=== PATIENT | female | born 1975 | race Caucasian/White ===

== ENCOUNTER → 2016-11-28 | Outpatient (CLI) | payer OTHER ==
--- NOTE | 2016-11-30 07:56 | MM ---
Reason for exam: screening (asymptomatic). Last mammogram was performed 1 year and 2 months ago. History: Family history of breast cancer in sister at age 49 and breast cancer in mother at age 49. Physical Findings: A clinical breast exam by your physician is recommended on an annual basis and results should be correlated with mammographic findings. MG 3D Screening Mammo W/Cad Bilateral CC and MLO view(s) were taken. Prior study comparison: October 04, 2015, left breast MG 3d work up w/cad LT. September 22, 2015, bilateral MG screening mammo w CAD. May 12, 2013, bilateral digital screening mammo w/CAD. The breast tissue is heterogeneously dense. This may lower the sensitivity of mammography. No significant changes when compared with prior studies. ASSESSMENT: Negative, BI-RAD 1 RECOMMENDATION: Routine screening mammogram of both breasts in 1 year.
== END | disposition home or self-care (01) ==
LOC: RADMAMWWP 12:39
PROVIDERS: ATTEND Family Medicine
DX: Z12.31 Encounter for screening mammogram for malignant neoplasm of breast (principal); Z80.3 Family history of malignant neoplasm of breast
CPT/HCPCS: 77063; G0202

== ENCOUNTER → 2018-02-25 | Outpatient (CLI) | payer OTHER ==
--- NOTE | 2018-02-26 11:20 | MM ---
Reason for exam: screening (asymptomatic). Last mammogram was performed 1 year and 3 months ago. History: Family history of breast cancer in sister at age 49 and breast cancer in mother at age 49. Physical Findings: A clinical breast exam by your physician is recommended on an annual basis and results should be correlated with mammographic findings. MG 3D Screening Mammo W/Cad Bilateral CC and MLO view(s) were taken. Prior study comparison: November 28, 2016, bilateral MG 3d screening mammo w/cad. October 04, 2015, left breast MG 3d work up w/cad LT. The breast tissue is heterogeneously dense. This may lower the sensitivity of mammography. No suspicious abnormality. No significant changes when compared with prior studies. ASSESSMENT: Negative, BI-RAD 1 RECOMMENDATION: Routine screening mammogram of both breasts in 1 year.
== END | disposition home or self-care (01) ==
LOC: RADMAMWWP 11:04
PROVIDERS: ATTEND Family Medicine
DX: Z12.31 Encounter for screening mammogram for malignant neoplasm of breast (principal)
CPT/HCPCS: 77063; 77067

== ENCOUNTER → 2019-07-24 | Outpatient (CLI) | payer OTHER ==
--- NOTE | 2019-07-25 13:29 | MM ---
Reason for exam: screening (asymptomatic). Last mammogram was performed 1 year and 5 months ago. History: Family history of breast cancer in sister at age 49 and breast cancer in mother at age 49. Physical Findings: A clinical breast exam by your physician is recommended on an annual basis and results should be correlated with mammographic findings. MG 3D Screening Mammo W/Cad Bilateral CC and MLO view(s) were taken. Prior study comparison: February 25, 2018, bilateral MG 3d screening mammo w/cad. November 28, 2016, bilateral MG 3d screening mammo w/cad. The breast tissue is heterogeneously dense. This may lower the sensitivity of mammography. No suspicious abnormality. No significant changes when compared with prior studies. ASSESSMENT: Negative, BI-RAD 1 RECOMMENDATION: Routine screening mammogram of both breasts in 1 year.
== END | disposition home or self-care (01) ==
LOC: RADMAMWWP 13:42
PROVIDERS: ATTEND Family Medicine
DX: Z12.31 Encounter for screening mammogram for malignant neoplasm of breast (principal)
CPT/HCPCS: 77063; 77067

== ENCOUNTER → 2020-10-21 | Outpatient (CLI) | payer OTHER ==
--- NOTE | 2020-10-25 11:31 | MM ---
Reason for exam: screening (asymptomatic). Last mammogram was performed 1 year and 3 months ago. History: Family history of breast cancer in sister at age 49 and breast cancer in mother at age 49. Physical Findings: A clinical breast exam by your physician is recommended on an annual basis and results should be correlated with mammographic findings. MG 3D Screening Mammo W/Cad Bilateral CC and MLO view(s) were taken. Prior study comparison: July 24, 2019, bilateral MG 3d screening mammo w/cad. February 25, 2018, bilateral MG 3d screening mammo w/cad. The breast tissue is heterogeneously dense. This may lower the sensitivity of mammography. No significant changes when compared with prior studies. ASSESSMENT: Negative, BI-RAD 1 RECOMMENDATION: Routine screening mammogram of both breasts in 1 year.
== END | disposition home or self-care (01) ==
LOC: RADMAMWWP 15:59
PROVIDERS: ATTEND Family Medicine
DX: Z12.31 Encounter for screening mammogram for malignant neoplasm of breast (principal)
CPT/HCPCS: 77063; 77067

== ENCOUNTER → 2022-01-04 | Outpatient (CLI) | payer OTHER ==
--- NOTE | 2022-01-05 14:25 | MM ---
Reason for exam: screening (asymptomatic). Last mammogram was performed 1 year and 2 months ago. History: Family history of breast cancer in sister at age 49 and breast cancer in mother at age 49. Physical Findings: A clinical breast exam by your physician is recommended on an annual basis and results should be correlated with mammographic findings. MG 3D Screening Mammo W/Cad Bilateral CC and MLO view(s) were taken. Prior study comparison: October 21, 2020, bilateral MG 3d screening mammo w/cad. July 24, 2019, bilateral MG 3d screening mammo w/cad. The breast tissue is heterogeneously dense. This may lower the sensitivity of mammography. Stable benign calcifications in the right breast. No significant changes when compared with prior studies. ASSESSMENT: Benign, BI-RAD 2 RECOMMENDATION: Routine screening mammogram of both breasts in 1 year.
== END | disposition home or self-care (01) ==
LOC: RADMAMWWP 10:48
PROVIDERS: ATTEND Family Medicine
DX: Z12.31 Encounter for screening mammogram for malignant neoplasm of breast (principal)
CPT/HCPCS: 77063; 77067

== ENCOUNTER → 2023-02-02 | Day surgery (SDC) | payer OTHER ==
--- NOTE | 2023-02-02 08:00 | P.GSHP ---
History of Present Illness H&P Date: 02/02/23 Chief Complaint: abnormal right breast mammogram Clarisa is a 47 year old white female seen in consultation for Dr. Gerber regarding a mammographic abnormality in the right breast. She had a routine bilateral mammogram performed on [id number]. There were some new indistinct 6-8 mm group of calcifications in the middle depth right breast. A diagnostic mammogram was then performed and [id number] of the right breast. No lesions of concern were identified in the left breast. The recommendation was for a stereotactic core biopsy of the right breast. She has been getting regular mammograms since 38. She did not feel any lumps masses or nodules of concern in either breast. She is not complaining of any nipple discharge or skin changes. She has not had any recent trauma or infection in the breast. She has never had any surgery or biopsies on her breasts before. Khadijah risk 5 year: 3.2% of discussed chemoprophylaxis at this time she has declined lifetime risk: 28.5% Caffeine: 4 pops/week nicotine: none chocolate: daily BCP: 5 years Family History: mother: dx breast cancer t 49 of breast cancer at 54 sister: dx breast cancer at 49 at 53 genetic testing done not know results father: prostate cancer Hormonal History: menarche: 11 , breast fed, age at first : 24 menopause: periods regular hormones: none Surgical history: none Medical History: HTN since 30 Social History: nicotine: none alcohol: occasional drugs: none - Constitutional Constitutional: Denies chills, Denies fever - EENT Eyes: denies blurred vision, denies pain Ears: deny: decreased hearing, tinnitus Ears, nose, mouth and throat: Denies headache, Denies sore throat - Breasts Breasts: bilateral: as per HPI - Cardiovascular Cardiovascular: Denies chest pain, Denies shortness of breath - Respiratory Respiratory: Denies cough, Denies 7 - Gastrointestinal Comment: GERD Gastrointestinal: Denies abdominal pain, Denies diarrhea, Denies nausea, Denies vomiting - Genitourinary (Female) Genitourinary: Denies dysuria, Denies hematuria - Menstruation Menstruation: Reports period normal - Musculoskeletal Comment: back pain Musculoskeletal: Denies myalgias - Integumentary Integumentary: Denies pruritus, Denies rash - Neurological Neurological: Denies numbness, Denies weakness - Psychiatric Psychiatric: Denies anxiety, Denies depression - Endocrine Endocrine: Denies fatigue, Denies weight change - Hematologic/Lymphatic Comment: none - Allergic/Immunologic Allergic/Immunologic: Reports seasonal allergies Past Medical History Past Medical History: Hypertension Additional Past Medical History / Comment(s): sciatica in lower back,. intermittent History of Any Multi-Drug Resistant Organisms: None Reported Past Surgical History: No Surgical Hx Reported Past Anesthesia/Blood Transfusion Reactions: No Reported Reaction Past Psychological History: No Psychological Hx Reported Smoking Status: Never smoker Past Alcohol Use History: Occasional Past Drug Use History: None Reported Medications and Allergies Home Medications Medication Instructions Recorded Confirmed Type Atenolol/Chlorthalidone 1 each PO DAILY 01/10/23 02/02/23 History [Atenolol/Chlorthalidone 50-25] Cyclobenzaprine [Flexeril] 10 mg PO HS 01/10/23 02/02/23 History Ibuprofen [Motrin] 600 mg PO Q8HR PRN 01/10/23 02/02/23 History Allergies Allergy/AdvReac Type Severity Reaction Status Date / Time No Known Allergies Allergy Verified 02/02/23 07:31 Surgical - Exam - General moderate distress - Eyes normal ocular movement - Neck trachea midline - Respiratory normal respiratory effort, clear to auscultation - Cardiovascular Rhythm: regular Heart Sounds: normal: S1, S2 - Abdomen Abdomen: soft, non tender, no guarding, no rigid, no rebound - Integumentary normal turgor - Neurologic no disoriented, no combative - Musculoskeletal normal gait - Psychiatric oriented to time, oriented to person, oriented to place, speech is normal, memory intact Breast Exam: BRA: 42C Inspection: Bilateral grade 2/3 ptosis Palpation: Right breast: Multi-positional exam fibrocystic changes, dense breasts no dominant masses or nodules of concern Right axilla: No adenopathy of concern Left breast: Multi-positional exam fibrocystic changes, no dominant masses or nodules of concern Left axilla: No adenopathy of concern Fungal infection under both breast Results Bilateral mammogram reviewed with Dr. Ballard Assessment and Plan Assessment: Impression: Mammographic abnormality right breast Fibrocystic breast changes Positive history of breast cancer and family Fungal infection under both breasts Plan: Stereotactic core biopsy right breast Nystatin to area fungal infection Genetic testing We have discussed chemo prophylaxis and at this time the patient has declined CC: Dr. Gerber Risks and benefits of the procedure discussed with the patient. She understands and wishes to proceed.
--- NOTE | 2023-02-02 12:24 | MM ---
Date of Procedure: 02/02/23 Preoperative Diagnosis: microcalcifications of concern right breast Postoperative Diagnosis: same Procedure(s) Performed: Right breast stereotactic core biopsy Anesthesia: local Surgeon: Penelope Mackey Pathology: other (Breast tissue/radiographic specimen revealed microcalcifications of concern) Condition: stable Disposition: same day Indications for Procedure: Microcalcifications of concern right breast Operative Findings: Radiographic of specimen reveals microcalcifications of concern Description of Procedure: Clarisa is a 47-year-old white female with a mammogram showing microcalcifications of concern in the right breast. Stereotactic core biopsy was recommended. The calcifications are in the midportion slightly upper aspect of the right breast. The approximately 6 mm in length. Risks and benefits of the procedure were discussed with the patient. She understood and wished to proceed. The patient was taken to the stereotactic core biopsy room. She was positioned prone on the low rad table. A CC from above approach was utilized. A scalp film was obtained. The calcifications of concern were identified. The calcifications were targeted. The breast was prepped using Betadine. 20 mL of 1% lidocaine were used to anesthetize the area of concern. 19-gauge vacuum- assisted core rotating biopsy needle was driven to the correct coordinates. A prefire film was obtained. The needle was noted to be in the correct location. The needle was fired. A post-fire film was obtained and the needle was noted to be in the correct location. 15 core biopsy specimens were obtained. Radiograph of the specimen revealed the calcifications of concern had been adequately sampled. A secure kenton Top-Hat clip was placed. The patient tolerated the procedure in stable condition. The clip was noted to be in the correct location. The specimen was sent to pathology. The patient will follow-up with Dr. Rawls next week. JW
== END ==
LOC: RADMAMWWP 07:06
PROVIDERS: ATTEND Surgery
DX: D05.11 Intraductal carcinoma in situ of right breast (principal); I10 Essential (primary) hypertension; N60.11 Diffuse cystic mastopathy of right breast; Z79.1 Long term (current) use of non-steroidal anti-inflammatories (NSAID); Z80.3 Family history of malignant neoplasm of breast; Z85.3 Personal history of malignant neoplasm of breast
CPT/HCPCS: 88305; 88342; 88341; 19081; A4648

== ENCOUNTER → 2023-02-02 | Outpatient (CLI) | payer OTHER ==
[2023-02-02 07:35] VITALS: BP 127/86; PULSE 94; RESP 18; TEMP 97.9
--- NOTE | 2023-02-02 08:43 | P.PCN ---
Date of Procedure: 02/02/23 Preoperative Diagnosis: microcalcifications of concern right breast Postoperative Diagnosis: same Procedure(s) Performed: Right breast stereotactic core biopsy Anesthesia: local Surgeon: Penelope Mackey Pathology: other (Breast tissue/radiographic specimen revealed microcalcifications of concern) Condition: stable Disposition: same day Indications for Procedure: Microcalcifications of concern right breast Operative Findings: Radiographic of specimen reveals microcalcifications of concern Description of Procedure: Clarisa is a 47-year-old white female with a mammogram showing microcalcifications of concern in the right breast. Stereotactic core biopsy was recommended. The calcifications are in the midportion slightly upper aspect of the right breast. The approximately 6 mm in length. Risks and benefits of the procedure were discussed with the patient. She understood and wished to proceed. The patient was taken to the stereotactic core biopsy room. She was positioned prone on the low rad table. A CC from above approach was utilized. A scalp film was obtained. The calcifications of concern were identified. The calcifications were targeted. The breast was prepped using Betadine. 20 mL of 1% lidocaine were used to anesthetize the area of concern. 19-gauge vacuum- assisted core rotating biopsy needle was driven to the correct coordinates. A prefire film was obtained. The needle was noted to be in the correct location. The needle was fired. A post-fire film was obtained and the needle was noted to be in the correct location. 15 core biopsy specimens were obtained. Radiograph of the specimen revealed the calcifications of concern had been adequately sampled. A secure kenton Top-Hat clip was placed. The patient tolerated the procedure in stable condition. The clip was noted to be in the correct location. The specimen was sent to pathology. The patient will follow-up with Dr. Rawls next week.
== END ==
LOC: WWCWWP 07:06
PROVIDERS: ATTEND Surgery
DX: R92.8 Other abnormal and inconclusive findings on diagnostic imaging of breast (principal); R92.1 Mammographic calcification found on diagnostic imaging of breast

== ENCOUNTER → 2023-02-08 | Outpatient (CLI) | payer OTHER ==
[2023-02-08 14:28] VITALS: BP 131/88; PULSE 92; RESP 17; TEMP 98.3
--- NOTE | 2023-02-08 14:32 | P.PN ---
Subjective Progress Note Date: 02/08/23 Principal diagnosis: right breast DCIS 2022 Clarisa is a 47 year old white female seen in consultation for Dr. Gerber regarding a mammographic abnormality in the right breast. She had a routine bilateral mammogram performed on . There were some new indistinct 6-8 mm group of calcifications in the middle depth right breast. A diagnostic mammogram was then performed and of the right breast. No lesions of concern were identified in the left breast. The recommendation was for a stereotactic core biopsy of the right breast. She has been getting regular mammograms since 38. She did not feel any lumps masses or nodules of concern in either breast. She is not complaining of any nipple discharge or skin changes. She has not had any recent trauma or infection in the breast. She has never had any surgery or biopsies on her breasts before. 02-08-23 A stero biopsy was preformed of the right breast on 02-02-23. This showed high grade DCIS, ER+, Pr+. She tolerated the procedure without difficulty. The area of concern was reviewed with Dr. Long it appears to be approximately 1 cm in size. Caffeine: 4 pops/week nicotine: none chocolate: daily BCP: 5 years Family History: mother: dx breast cancer at 49 of breast cancer at 54 sister: dx breast cancer at 49 at 53 genetic testing done not know results father: prostate cancer Hormonal History: menarche: 11 , breast fed, age at first : 24 menopause: periods regular hormones: none Surgical history: none Medical History: HTN since 30 Social History: nicotine: none alcohol: occasional drugs: none - Constitutional Constitutional: Denies chills, Denies fever - EENT Eyes: denies blurred vision, denies pain Ears: deny: decreased hearing, tinnitus Ears, nose, mouth and throat: Denies headache, Denies sore throat - Breasts Breasts: bilateral: as per HPI - Cardiovascular Cardiovascular: Denies chest pain, Denies shortness of breath - Respiratory Respiratory: Denies cough - Gastrointestinal Comment: GERD Gastrointestinal: Denies abdominal pain, Denies diarrhea, Denies nausea, Denies vomiting - Genitourinary (Female) Genitourinary: Denies dysuria, Denies hematuria - Menstruation Menstruation: Reports period normal - Musculoskeletal Comment: back pain Musculoskeletal: Denies myalgias - Integumentary Integumentary: Denies pruritus, Denies rash - Neurological Neurological: Denies numbness, Denies weakness - Psychiatric Psychiatric: Denies anxiety, Denies depression - Endocrine Endocrine: Denies fatigue, Denies weight change - Hematologic/Lymphatic Comment: none - Allergic/Immunologic Allergic/Immunologic: Reports seasonal allergies Past Medical History Past Medical History: Hypertension Additional Past Medical History / Comment(s): sciatica in lower back,. intermittent History of Any Multi-Drug Resistant Organisms: None Reported Past Surgical History: No Surgical Hx Reported Past Anesthesia/Blood Transfusion Reactions: No Reported Reaction Past Psychological History: No Psychological Hx Reported Smoking Status: Never smoker Past Alcohol Use History: Occasional Past Drug Use History: None Reported Medications and Allergies Home Medications Medication Instructions Recorded Confirmed Type Atenolol/Chlorthalidone 1 each PO DAILY 01/10/23 02/02/23 History [Atenolol/Chlorthalidone 50-25] Cyclobenzaprine [Flexeril] 10 mg PO HS 01/10/23 02/02/23 History Ibuprofen [Motrin] 600 mg PO Q8HR PRN 01/10/23 02/02/23 History Allergies Allergy/AdvReac Type Severity Reaction Status Date / Time No Known Allergies Allergy Verified 02/02/23 07:31 Objective - Constitutional General appearance: Present: cooperative - EENT Eyes: Present: EOMI ENT: Present: hearing grossly normal - Neck Neck: Present: normal ROM - Respiratory Respiratory: bilateral: CTA - Cardiovascular Rhythm: regular Heart sounds: normal: S1, S2 - Gastrointestinal General gastrointestinal: Present: soft - Integumentary Integumentary: Present: normal turgor - Musculoskeletal Musculoskeletal: Present: gait normal - Psychiatric Psychiatric: Present: A&O x's 3, appropriate affect, intact judgment & insight - Additional findings Additional findings: Breast Exam from 02-02-23 BRA: 42C Inspection: Bilateral grade 2/3 ptosis Palpation: Right breast: Mild ecchymosis at biopsy site, no evidence of infection or hematoma. Prior examination no dominant masses or nodules of concern Right axilla: No adenopathy of concern Left breast: Multi-positional exam fibrocystic changes, no dominant masses or nodules of concern Left axilla: No adenopathy of concern fungal infection resolved Assessment and Plan Assessment: Impression: Mammographic abnormality right breast/ biopsy DCIS right breast; about 1 cm Fibrocystic breast changes Positive history of breast cancer and family Fungal infection under both breasts improved Plan: presentation of case at tumor board genetic testing CC: Dr. Gerber Risks and benefits of the procedure discussed with the patient. She understands and wishes to proceed. Additional CC's: Divine Gerber
== END ==
LOC: WWCWWP 13:26
PROVIDERS: ATTEND Surgery
DX: D05.11 Intraductal carcinoma in situ of right breast (principal); N60.11 Diffuse cystic mastopathy of right breast; R92.8 Other abnormal and inconclusive findings on diagnostic imaging of breast; I10 Essential (primary) hypertension; Z85.3 Personal history of malignant neoplasm of breast

== ENCOUNTER → 2023-03-02 | Outpatient (CLI) | payer OTHER ==
--- NOTE | 2023-03-26 18:17 | BMR ---
EXAMINATION TYPE: MR breast BILAT wo/w con DATE OF EXAM: 03/02/2023 COMPARISON: 3-D screening mammogram January 04, 2022 BI-RADS 2. 3-D screening mammogram January 05, 2023 BI-RADS 0. 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 The patient was i njected with 10 mL intravenous Gadavist gadolinium contrast. Three-dimensional and additional postp rocessing imaging is created on independent workstation and reviewed during official interpretation o f this study. FINDINGS: Heterogeneously dense fibroglandular tissue scattered throughout both breasts is redemonstr ated. There is occasional tiny benign thin-walled cyst scattered throughout the right breast. Benign- appearing bilateral axillary lymph nodes are seen. Dynamic postcontrast imaging shows asymmetric mode rate right-sided background enhancement. With regards to the left breast. There is no pathologic enhancement or enhancing mass is seen. No abn ormal skin thickening is present. The chest wall is intact. With regards to the right breast there is artifact from biopsy clip corresponding to central lesion i n the middle to posterior depth seen near postcontrast page 87 There is a roughly 1.3 x 1.2 cm area o f masslike enhancement at this level just above the biopsy clip age 89 with areas of rapid uptake and washout corresponding to recent site of biopsy-proven DCIS. There is stippled areas of nonmass enhan cement extending anteriorly from this area nearly to the level of nipple over roughly 8.0 cm segment extending more prominent medially. Additional areas of neoplasm needs to be considered. IMPRESSION: No MRI evidence for invasive malignancy in left breast. Site of recently biopsy proven DCIS shows 1.3 cm masslike enhancement. Suspicious nonmass enhancement extends anteriorly from this. Additional areas of neoplasm involvement cannot be excluded. No abnormal lymphadenopathy bilaterally. BI-RADS 1 negative study left breast BI-RADS 6 biopsy-proven neoplasm right breast. Recommendation: Ultrasound right breast to assess additional areas of concern on MRI. If ultrasound n egative MRI sampling would be advised. I have been awaiting second opinion for several weeks. When statrad second opinion becomes available an addendum may be issued.
== END | disposition home or self-care (01) ==
LOC: RADMRIMAIN 14:58
PROVIDERS: ATTEND Internal Medicine Hematology & Oncology
DX: C50.811 Malignant neoplasm of overlapping sites of right female breast (principal); Z80.3 Family history of malignant neoplasm of breast
CPT/HCPCS: 77049; A9585

== ENCOUNTER → 2023-03-15 | Outpatient (CLI) | payer OTHER ==
[2023-03-15 11:47] VITALS: BP 122/86; PULSE 85; RESP 18; TEMP 97.6
--- NOTE | 2023-03-15 12:11 | P.PN ---
Subjective Progress Note Date: 03/15/23 Principal diagnosis: right breast DCIS abnormal right breast mammogram Clarisa is a 47 year old white female seen in consultation for Dr. Gerber regarding a mammographic abnormality in the right breast. She had a routine bilateral mammogram performed on . There were some new indistinct 6-8 mm group of calcifications in the middle depth right breast. A diagnostic mammogram was then performed and of the right breast. No lesions of concern were identified in the left breast. The recommendation was for a stereotactic core biopsy of the right breast. She has been getting regular mammograms since 38. She did not feel any lumps masses or nodules of concern in either breast. She is not complaining of any nipple discharge or skin changes. She has not had any recent trauma or infection in the breast. She has never had any surgery or biopsies on her breasts before. Core biopsy was done on 02-02-23 which was high grade DCIS, this was ER+, IA+ Note reviewed from Dr. Quintana on 02-12-23 MRI of the breast was done on 02-12-23 genetic testing is being done bilateral mastectomy and right SNB possible axillary node dissection Caffeine: 4 pops/week nicotine: none chocolate: daily BCP: 5 years Family History: mother: dx breast cancer at 49 of breast cancer at 54 sister: dx breast cancer at 49 at 53 genetic testing done not know results father: prostate cancer Hormonal History: menarche: 11 , breast fed, age at first : 24 menopause: periods regular hormones: none Surgical history: none Medical History: HTN since 30 Social History: nicotine: none alcohol: occasional drugs: none - Constitutional Constitutional: Denies chills, Denies fever - EENT Eyes: denies blurred vision, denies pain Ears: deny: decreased hearing, tinnitus Ears, nose, mouth and throat: Denies headache, Denies sore throat - Breasts Breasts: bilateral: as per HPI - Cardiovascular Cardiovascular: Denies chest pain, Denies shortness of breath - Respiratory Respiratory: Denies cough - Gastrointestinal Comment: GERD Gastrointestinal: Denies abdominal pain, Denies diarrhea, Denies nausea, Denies vomiting - Genitourinary (Female) Genitourinary: Denies dysuria, Denies hematuria - Menstruation Menstruation: Reports period normal - Musculoskeletal Comment: back pain Musculoskeletal: Denies myalgias - Integumentary Integumentary: Denies pruritus, Denies rash - Neurological Neurological: Denies numbness, Denies weakness - Psychiatric Psychiatric: Denies anxiety, Denies depression - Endocrine Endocrine: Denies fatigue, Denies weight change - Hematologic/Lymphatic Comment: none - Allergic/Immunologic Allergic/Immunologic: Reports seasonal allergies Past Medical History Past Medical History: Hypertension Additional Past Medical History / Comment(s): sciatica in lower back,. intermittent History of Any Multi-Drug Resistant Organisms: None Reported Past Surgical History: No Surgical Hx Reported Past Anesthesia/Blood Transfusion Reactions: No Reported Reaction Past Psychological History: No Psychological Hx Reported Smoking Status: Never smoker Past Alcohol Use History: Occasional Past Drug Use History: None Reported Medications and Allergies Home Medications Medication Instructions Recorded Confirmed Type Atenolol/Chlorthalidone 1 each PO DAILY 01/10/23 02/02/23 History [Atenolol/Chlorthalidone 50-25] Cyclobenzaprine [Flexeril] 10 mg PO HS 01/10/23 02/02/23 History Ibuprofen [Motrin] 600 mg PO Q8HR PRN 01/10/23 02/02/23 History Allergies Allergy/AdvReac Type Severity Reaction Status Date / Time No Known Allergies Allergy Verified 02/02/23 07:31 Objective - Vital Signs Vital signs: Vital Signs Temp 97.6 F 03/15/23 11:42 Pulse 85 03/15/23 11:42 Resp 18 03/15/23 11:42 BP 122/86 03/15/23 11:42 Pulse Ox 97 03/15/23 11:42 FiO2 Intake & Output 03/14/23 03/15/23 03/15/23 18:59 06:59 18:59 Weight 101.151 kg - Constitutional General appearance: Present: cooperative - EENT Eyes: Present: EOMI ENT: Present: hearing grossly normal - Neck Neck: Present: normal ROM - Respiratory Respiratory: bilateral: CTA - Cardiovascular Rhythm: regular Heart sounds: normal: S1, S2 - Gastrointestinal General gastrointestinal: Present: soft - Integumentary Integumentary: Present: normal turgor - Musculoskeletal Musculoskeletal: Present: gait normal - Psychiatric Psychiatric: Present: A&O x's 3, appropriate affect, intact judgment & insight - Additional findings Additional findings: Breast Exam: BRA: 42C Inspection: Bilateral grade 2/3 ptosis Palpation: Right breast: Multi-positional exam fibrocystic changes, dense breasts no dominant masses or nodules of concern Right axilla: No adenopathy of concern Left breast: Multi-positional exam fibrocystic changes, no dominant masses or nodules of concern Left axilla: No adenopathy of concern Assessment and Plan Assessment: Impression: High-grade DCIS right breast Fibrocystic breast changes Positive history of breast cancer and family Padmini testing was done and verbal report is that this is negative MRI done results pending Plan: Bilateral skin sparing mastectomy, right sentinel node injection, right sentinel node biopsy, possible right axillary node dissection, bilateral implant reconstruction CC: Dr. Gerber Risks and benefits of the procedure discussed with the patient. She understands and wishes to proceed. Additional CC's: Divine Gerber
== END ==
LOC: WWCWWP 11:36
PROVIDERS: ATTEND Surgery
DX: N60.11 Diffuse cystic mastopathy of right breast (principal); I10 Essential (primary) hypertension; Z17.0 Estrogen receptor positive status [ER+]; Z80.3 Family history of malignant neoplasm of breast; Z85.3 Personal history of malignant neoplasm of breast; Z90.13 Acquired absence of bilateral breasts and nipples

== ENCOUNTER 2023-04-03 10:44 | Day surgery (SDC) | payer OTHER ==
[2023-03-29 08:58] VITALS: BMI 34.2
[~2023-04-03 10:44] MED LIST: DEXAMETHASONE SOD PHOSPHATE 4 MG/ML 1 ML VIAL IV ONE; HEPARIN SODIUM,PORCINE/PF 5,000 UNIT/0.5 ML SYRINGE SQ PRN; LIDOCAINE 1% (10MG/ML) FOR IV START INTRADERMA PRN; MIDAZOLAM 2 MG/2 ML VIAL IV PRN; ONDANSETRON 4 MG/2 ML VIAL IVP ONE; Pre Op ABX Message 1 EACH MISC MISCELLANE ONE
[2023-04-03] MEDS: LACTATED RINGERS 1,000 ML IV SCH ×2 (11:29→12:54)
[2023-04-03] MEDS: POTASSIUM CHLORIDE 10 MEQ in WATER FOR INJECTION 1 100ML.BAG IVPB SCH ×2 (12:44→21:14)
--- NOTE | 2023-04-03 12:45 | P.NAPBC ---
NAPBC Queries - NAPBC Queries Was patient's case review presented at [facility] tumor board? If no, comment.: Yes Was patient's pathology reviewed at [facility]? If no, comment.: Yes Was breast conservation surgery offered? If no, comment.: Yes Was sentinel node biopsy offered? If no, comment.: Yes Was diagnosis confirmed by percutaneous core biopsy? If no, comment.: Yes Is patient mastectomy patient?: Yes Was a preop referral to reconstructive surgeon offered?: Yes Clinical Stage: stage 0 DCIS right breast
--- NOTE | 2023-04-03 12:51 | NM ---
EXAMINATION TYPE: NM sentinel node injection DATE OF EXAM: 04/03/2023 COMPARISON: 01/05/2023 mammogram CLINICAL INDICATION: Female, 47 years old with history of RIGHT BREAST CA; TECHNIQUE AND FINDINGS: The procedure of sentinel lymph node injection was explained to the patient. The benefits, alternatives, and risks were discussed. An informed consent was then obtained. Overlying skin is cleaned with sterile alcohol. Following this, 515 uCi Tc99m Tilmanocept was inject ed in the upper outer aspect of the right nipple intradermally. The patient tolerated the procedure well without any immediate complication. The patient was kept in the radiology department for short stay after the procedure and then taken to surgery for surgical p rocedure what is presumed intraoperative gamma probe will be used for sentinel lymph node detection. IMPRESSION: Right breast radiotracer injection for sentinel node localization as above.
[2023-04-03] MEDS ORDERED: SUCCINYLCHOLINE CHLORIDE 200 MG/10 ML VIAL IV ONE (13:20)
[2023-04-03] MEDS ORDERED: fentaNYL (PF) 50 MCG/ML 2 ML AMP ONE (13:20)
[2023-04-03] MEDS ORDERED: PROPOFOL 10 MG/ML 20 ML VIAL IV ONE (13:20)
[2023-04-03] MEDS ORDERED: MIDAZOLAM 2 MG/2 ML VIAL ONE (13:20)
[2023-04-03] MEDS ORDERED: LIDOCAINE 2% INJ 20 MG/ML (2 ML VIAL) ONE (13:20)
[2023-04-03] MEDS ORDERED: KETAMINE 10 MG/ML 20 ML VIAL ONE (13:20)
[2023-04-03] MEDS ORDERED: HYDROmorphone 1 MG/ML 1 ML SYRINGE IVP PRN (15:52)
[2023-04-03] MEDS ORDERED: NALOXONE 0.4 MG/ML 1 ML VIAL IV PRN (15:52)
--- NOTE | 2023-04-03 15:52 | P.OP ---
Date of Procedure: 04/03/23 Preoperative Diagnosis: Right breast DCIS Postoperative Diagnosis: Same Procedure(s) Performed: Bilateral skin sparing mastectomy, left sentinel node biopsy/axillary tissue sampling Anesthesia: LUISA Surgeon: Penelope Mackey Estimated Blood Loss (ml): 30 IV fluids (ml): 500 Pathology: other (Bilateral breast, right axillary sentinel node biopsy) Condition: stable Disposition: floor Indications for Procedure: Right breast DCIS Operative Findings: Dense breast tissue Description of Procedure: The patient is a 47-year-old white female with a strong family history of breast cancer. She was diagnosed with DCIS and opted for bilateral skin sparing mastectomies with immediate reconstruction. She also agreed to a sentinel node biopsy on the right side. In the preoperative area she was injected with radiotracer. Following this she was brought to the operative suite. Following induction of anesthesia both breasts and axilla were prepped and draped in a sterile fashion. Interrogation with the neoprobe revealed some activity in the axilla although it was felt to be limited. I opted not to inject with methylene blue secondary to the fact that the patient was having an implant reconstruction, and we did not want to have the possible skin necrosis with the methylene blue. Additionally this is a DCIS. The area of the left breast was approached initially. A circumareolar incision was made. This was carried down to the skin and subcutaneous tissue to the plane between the breast tissue and the subcutaneous tissue. Circumferential dissection was performed down to the area of the pectoralis muscle. At this point the breast was taken from medial to lateral off the pectoralis muscle. Hemostasis was attained using electrocautery device as well as the Harmonic scalpel. Following removal of the breast it was marked with a short suture superior and a long suture laterally. The wound was well irrigated. At this point Dr. Austin from plastic surgery came to do the prepectoral electrical/instrument technician placement. The right breast was approached. A circumareolar incision was made and carried down through the skin and subcutaneous tissue to the plane between the breast tissue and the subcutaneous tissue. Circumferential dissection was performed down to the area of the chest wall. The breast was taken from medial to lateral being careful to maintain hemostasis using the electrocautery device and the Harmonic scalpel. The breast was removed. Using the neoprobe there was some radioactivity identified in the axilla. However this was fairly minimal and no discrete adenopathy was palpated. The area of the axilla was approached and axillary tissue was resected again no distinct radioactivity in the axilla was noted. No palpable adenopathy of concern was appreciated. Med Admin axillary tissue was resected however it is questionable that any lymph nodes were removed. After we were assured that hemostasis was attained at the right mastectomy site Dr. Austin proceeded to do a prepectoral electrical/instrument technician placement for implant reconstruction. All sponge and instrument counts were correct at the end of the case.
[2023-04-03] MEDS: HYDROmorphone 0.5 MG/0.5 ML SYRINGE IVP PRN ×3 (16:50→18:58)
[2023-04-03] MEDS: DEXTROSE 5%-0.45% NACL 1,000 ML IV SCH (19:20)
[2023-04-03] MEDS: ONDANSETRON 4 MG/2 ML VIAL IVP PRN (21:29)
[2023-04-03] MEDS: HYDROcodone/APAP 5-325MG 1 EACH TAB PO PRN (23:16)
[2023-04-03] MEDS: HEPARIN SODIUM,PORCINE/PF 5,000 UNIT/0.5 ML SYRINGE SQ SCH (23:17)
--- NOTE | 2023-04-03 23:26 | OP ---
OPERATIVE REPORT DATE OF SERVICE : 04/03/2023 PREOPERATIVE DIAGNOSES: 1. Acquired loss, right and left breast. 2. Breast cancer. POSTOPERATIVE DIAGNOSES: 1. Acquired loss, right and left breast. 2. Breast cancer. PROCEDURES PERFORMED: 1. Immediate reconstruction, left breast following mastectomy with insertion of tissue retail department reset and subsequent outpatient expansion. 2. Immediate reconstruction, right breast following mastectomy with insertion of tissue retail department reset and subsequent outpatient expansion. 3. Implantation of reconstructive graft for right and left breast reconstruction. 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 She has elected to proceed with bilateral mastectomy procedures for treatment of breast cancer and also desires immediate breast reconstruction. She has decided upon a tissue retail department reset style technique and is aware of the staged nature of breast reconstructive surgery as well as potential risks and complications related to today's surgery including, but not limited to hematoma, seroma, wound healing problems, among others. She has requested I perform the surgery. OPERATIVE PROCEDURE SUMMARY: The patient was seen in the preoperative area, markings made, procedure reviewed. All questions answered. She was transported to the operating room, where she was placed in supine position. Following induction of general endotracheal anesthesia, the patient was prepped and draped in usual fashion. Dr. Mackey, her surgical team then initiated the left-sided mastectomy procedures through a circumareolar approach. Once the procedure was complete, Dr. Mackey and her team proceeded to the right mastectomy and right sentinel lymph node procedures while I initiated the left breast reconstruction. Sponge and needle counts in prior procedure were correct. The left mastectomy wound was open with no active bleeding. The cavity was measured. A tissue retail department reset then opened on the field. Both tissue expanders were the same size today from [employer], reference #[id number]-[id number] measuring 600 mL. The left-sided retail department reset serial #[id number] and the right-sided retail department reset serial #[id number]. [employer] was only handled by surgeon. All air was extracted. 300 mL of air instilled. Reconstructive graft material was opened onto the field, AlloDerm Select tissue matrix perforated contour medium size measuring 132 square cm. Two pieces were used today; however, opens sequentially after opening expanders. The AlloDerm Select was rinsed in room temperature saline for over 2 minutes and then re-irrigated. It was pre-stretched. The AlloDerm Select was now used to cover the retail department reset anterior surfaces securing to the suture tab locations using 2-0 Vicryl sutures. The 2nd retail department reset was opened onto the field, again only handled by surgeon. All air extracted. 300 mL of air instilled. A 2nd piece of AlloDerm Select tissue matrix was opened on the field, rinsed in saline for over 2 minutes, then pre-stretched and used to cover the anterior surface of the retail department reset, securing to the suture tabs with 2-[address]. [address] Mackey completed the right-sided procedures, the cavities were irrigated and the expanders were placed for test fit. Additional dissection was required to optimize the fit of the expanders and positioning. This was completed with cautery on each side. The expanders were now secured to the chest wall after first ensuring hemostasis was optimal. The expanders were secured to the chest wall with the 6 suture tab locations using interrupted 2-0 Vicryl sutures assuring symmetrical position of the expanders. 19 round Isrrael drains were opened on the field, 1 placed into each reconstructive cavity and brought through separate stab incisions. The right or left anterior lateral chest wall sutures placed with 2-0 Prolene. The mastectomy incisions were now closed. They were performed through a circumareolar approach. The medial half of the apache was closed in a circular fashion using a 2-0 Prolene pursestring suture, buried deeply followed by finer approximation of the deep dermis with inverted interrupted 4-0 Monocryl and completing this portion of closure with shoshana. The lateral extension now closed approximated deep dermis using inverted interrupted 4-0 Monocryl followed by closure of superficial dermis and epidermis with short running 5-0 Prolene. Surgical field was cleansed with saline, dried, postoperative bandages placed using Kerlix squares secured with 3M Medipore tape. Drain sponges as well as drains were connected to close bulb suction and patent at the end of the procedure. Extra large size mammary support was positioned and the patient was awakened from her anesthetic, extubated in the operating room and transferred to the recovery room in good condition with stable vital signs. Estimated blood loss was 25 mL. There were no complications. MMODL / IJN: [id number] /
[2023-04-04] MEDS: HYDROcodone/APAP 5-325MG 1 EACH TAB PO PRN ×2 (04:01→09:09)
[2023-04-04] MEDS: DEXTROSE 5%-0.45% NACL 1,000 ML IV SCH (05:32)
[2023-04-04 05:46] LABS: Basophils % (A) 0 %; Eosinophils % (A) 0 %; HCT 36.5 % (34.0-46.0); HGB 11.7 gm/dL (11.4-16.0); Lymphocytes # (A) 0.9 k/uL (1.0-4.8); Lymphocytes % (A) 9 %; MCH 27.1 pg (25.0-35.0); MCV 84.7 fL (80.0-100.0); Mean Platelet Volume 8.2; Monocytes # (A) 0.4 k/uL (0-1.0); Monocytes % (A) 4 %; Neutrophils # (A) 8.4 k/uL (1.3-7.7); Neutrophils % (A) 84 %; Platelet Count 310 k/uL (150-450); RDW 14.8 % (11.5-15.5); WBC 9.9 k/uL (3.8-10.6)
[2023-04-04] MEDS ORDERED: CYCLOBENZAPRINE 10 MG TAB PO PRN (08:30)
[2023-04-04 08:51] VITALS: BP 122/58; PULSE 80; RESP 20; TEMP 97.7
[2023-04-04] MEDS ORDERED: atenoloL 25 MG TAB PO SCH (09:00)
[2023-04-04] MEDS: ONDANSETRON 4 MG/2 ML VIAL IVP PRN (09:04)
[2023-04-04] MEDS: HEPARIN SODIUM,PORCINE/PF 5,000 UNIT/0.5 ML SYRINGE SQ SCH (09:07)
--- NOTE | 2023-04-04 10:07 | P.PN ---
Subjective Progress Note Date: 04/04/23 Principal diagnosis: Postop day #1 bilateral mastectomy with right axillary node sampling, bilateral prepectoral implant reconstruction Clarisa is a 47-year-old white female who is postop day #1 bilateral mastectomy with right axillary node sampling. She also had prepectoral implant expanders placed. Postoperatively she has done well however she has had some nausea. Her ZAKI output is serous in nature. Objective - Vital Signs Vital signs: Vital Signs Temp 97.7 F 04/04/23 08:50 Pulse 80 04/04/23 08:50 Resp 20 04/04/23 08:50 BP 122/58 04/04/23 08:50 Pulse Ox 97 04/04/23 08:50 FiO2 Intake & Output 04/03/23 04/04/23 04/04/23 18:59 06:59 18:59 Intake Total 950 Output Total 450 550 Balance 500 -550 Weight 102.1 kg Intake: IV 950 Output: Drainage 50 Left Chest 30 Right Chest 20 Urine 400 500 Estimated Blood Loss 50 Other: Voiding Method Toilet # Voids 2 - Constitutional General appearance: Present: cooperative - EENT Eyes: Present: EOMI ENT: Present: hearing grossly normal - Neck Neck: Present: normal ROM - Respiratory Respiratory: bilateral: CTA - Cardiovascular Rhythm: regular Heart sounds: normal: S1, S2 - Integumentary Integumentary Comment(s): Incision clean and dry bilateral No evidence of seroma on either chest wall site ZAKI output serous in nature - Psychiatric Psychiatric: Present: A&O x's 3, appropriate affect, intact judgment & insight - Labs CBC & Chem 7: 04/04/23 05:29 04/03/23 11:27 Labs: Abnormal Lab Results - Last 24 Hours (Table) 04/03/23 04/04/23 Range/Units 11:27 05:29 Neutrophils # 8.4 H (1.3-7.7) k/uL Lymphocytes # 0.9 L (1.0-4.8) k/uL Potassium 3.1 L (3.5-5.1) mmol/L Assessment and Plan Assessment: Impression: 1. Patient postop day #1 bilateral mastectomy with right axillary sampling, bilateral prepectoral implant reconstruction reduction expanders placed 2. Patient has had nausea postoperatively Plan: 1. Zofran as necessary for nausea 2. Dressings changed 3. The patient may be discharged later this afternoon if the nausea improves otherwise she will most likely stay until tomorrow
--- NOTE | 2023-04-04 11:17 | P.CONS ---
History of Present Illness - Reason for Consult Consult date: 04/04/23 Medical management Requesting physician: Penelope Mackey - Chief Complaint Breast surgery - History of Present Illness This is a very pleasant 47-year-old patient, follows with Dr. Traci arana. Patient is undergone bilateral mastectomy with reconstruction by Dr. Jeremi madrigal. Patient has 2 ZAKI drains. Having significant pain at the operative site. Also nausea. It feels better with Zofran. She has a strong family history of breast cancer both her mother and a sister having the same. She has been diagnosed with DCIS. And therefore opted for bilateral skin pitting mastectomies. With immediate reconstruction. She also does have a sentinel node biopsy in the right side. Patient does have some underlying urinary incontinence, some GERD. Does follow Dr. Quintana from hematology. Review of systems: GEN.: Tired EYES: None HEENT: None NECK: None RESPIRATORY: None CARDIOVASCULAR: None GASTROINTESTINAL: Nausea, GERD GENITOURINARY: Some incontinence MUSCULOSKELETAL: None LYMPHATICS: None HEMATOLOGICAL: None PSYCHIATRY: None NEUROLOGICAL: None Past medical history to include: Urinary incontinence, GERD, breast DCIS, Social history: . No smoking. Alcohol socially. Works at [employer] Physical examination: VITAL SIGNS: 97.7, 80, 20, 122/58, 97% room air GENERAL: BMI 34.2, reclining in bed awake a bit tired appearing. ZAKI drains 2 on the chest wall. His serosanguineous output EYES: Pupils equal. Conjunctiva normal. HEENT: External appearance of nose and ears normal, oral cavity grossly normal. NECK: JVD not raised; masses not palpable. HEART: First and second heart sounds are normal; no edema. LUNGS: Respiratory rate normal; clear to auscultation. ABDOMEN: Soft, nontender, liver spleen not palpable, no masses palpable. PSYCH: Alert and oriented x3; mood and affect normal. MUSCULOSKELETAL:No Clubbing/cyanosis;muscles-grossly intact NEUROLOGICAL: Cranial nerves grossly intact; no facial asymmetry, power and sensation grossly intact. LYMPHATICS: No lymph nodes palpable in the axilla and neck INVESTIGATIONS, reviewed in the clinical context: White count 9.9 hemoglobin 11.7 platelets 310 Assessment and plan: -Bilateral mastectomy with reconstruction and right sided sentinel node biopsy for underlying DCIS. Patient being followed by Dr. Mariee. -Obesity BMI 34.2 Outpatient weight loss measures -GERD Pepcid when necessary -Nausea secondary to pain medication and surgery Zofran when necessary -Muscle spasms Flexeril when necessary -Essential hypertension Will currently of the patient on atenolol 25 mg day. Discussed with patient. Dose will be increased to full when systolic blood pressure in the morning above 140 Activity as tolerated. Thank you Dr. Abelardo kumar Past Medical History Past Medical History: Cancer, Hypertension Additional Past Medical History / Comment(s): sciatica in lower back. breast cancer History of Any Multi-Drug Resistant Organisms: None Reported Past Surgical History: No Surgical Hx Reported Past Anesthesia/Blood Transfusion Reactions: No Reported Reaction Additional Past Anesthesia/Blood Transfusion Reaction / Comm: no major anesth. in the past (no problems with wisdom tooth extr.) Past Psychological History: No Psychological Hx Reported Smoking Status: Never smoker Past Alcohol Use History: Occasional Past Drug Use History: None Reported - Past Family History Sister(s) Family Medical History: Cancer Additional Family Medical History / Comment(s): breast cancer Mother Family Medical History: Cancer Additional Family Medical History / Comment(s): breast cancer Medications and Allergies Home Medications Medication Instructions Recorded Confirmed Type Atenolol/Chlorthalidone 1 each PO DAILY 01/10/23 04/03/23 History [Atenolol/Chlorthalidone 50-25] Cyclobenzaprine [Flexeril] 10 mg PO HS PRN 01/10/23 04/03/23 History HYDROcodone/APAP 5-325MG [Motley 5] 1 - 2 each PO Q6HR PRN #20 tab 04/04/23 Rx Allergies Allergy/AdvReac Type Severity Reaction Status Date / Time No Known Allergies Allergy Verified 04/03/23 11:16 Physical Exam Vitals: Vital Signs Temp Pulse Resp BP Pulse Ox 04/04/23 04:00 97.6 F 75 16 134/65 98 04/03/23 23:25 74 16 126/77 97 04/03/23 20:45 76 119/74 04/03/23 20:30 78 125/79 04/03/23 20:15 76 147/85 04/03/23 20:00 79 139/92 04/03/23 19:45 78 152/89 04/03/23 19:15 76 14 148/83 04/03/23 19:00 104 H 20 146/81 97 05/23/23 18:45 114 H 20 146/91 04/03/23 18:32 113 H 20 168/79 04/03/23 18:30 113 H 20 168/79 95 04/03/23 17:40 77 14 149/76 96 04/03/23 17:25 77 16 164/79 98 04/03/23 17:10 77 12 187/84 100 04/03/23 16:55 78 14 169/82 96 04/03/23 16:40 97 F L 87 14 171/84 97 04/03/23 12:57 73 16 126/76 97 04/03/23 11:22 98.1 F 79 16 132/89 98 Intake and Output 04/03/23 04/04/23 04/04/23 22:59 06:59 14:59 Intake Total 0 Output Total 500 500 Balance -500 -500 Intake: IV 0 Output: Drainage 50 Left Chest 30 Right Chest 20 Urine 400 500 Estimated Blood Loss 50 Other: Voiding Method Toilet # Voids 2 Weight 102.1 kg Results CBC & Chem 7: 04/04/23 05:29 04/03/23 11:27 Labs: Abnormal Lab Results - Last 24 Hours (Table) 04/03/23 04/04/23 Range/Units 11:27 05:29 Neutrophils # 8.4 H (1.3-7.7) k/uL Lymphocytes # 0.9 L (1.0-4.8) k/uL Potassium 3.1 L (3.5-5.1) mmol/L
== END 2023-04-04 15:40 | disposition home or self-care (01) ==
LOC: OR 10:44 → 4FBP 16:24 → OR 04-04 15:40
PROVIDERS: ATTEND Plastic Surgery
DX: Z90.13 Acquired absence of bilateral breasts and nipples (principal); D05.11 Intraductal carcinoma in situ of right breast; I10 Essential (primary) hypertension; K21.9 Gastro-esophageal reflux disease without esophagitis; Z79.1 Long term (current) use of non-steroidal anti-inflammatories (NSAID); Z79.899 Other long term (current) drug therapy; Z80.3 Family history of malignant neoplasm of breast
CPT/HCPCS: 19357; 19303; 38525; 81025; 84132; 85025; 38792; C1889; A9520; J2250; J1100; J0690 ×2; J2405 ×2; J3480; J1170; J1644 ×2

== ENCOUNTER → 2023-04-12 | Outpatient (CLI) | payer OTHER ==
[2023-04-12 15:52] VITALS: BP 118/72; PULSE 87; RESP 16; TEMP 98.5
--- NOTE | 2023-04-12 15:56 | P.PN ---
Progress Note - Text Progress Note Date: 04/12/23 Clarisa is status post [place] [id number]. Pathology revealed Left breast: Benign breast fibrocystic changes Right breast: High-grade DCIS with comedo necrosis and calcification margins negative, this was grade 3 in greatest dimension of DCIS was 2 cm Axillary contents: Benign fibroadipose tissue no lymph node identified Examination: Lungs: Clear Heart: Regular rate and rhythm Bilateral incisions clean and dry ZAKI drains bilateral serous minimal Impression: Patient doing well at this time Plan: Follow-up Dr. Austin for drain removal Follow up here in 4 months Follow-up medical oncology CC: DR. Gerber
== END ==
LOC: WWCWWP 15:38
PROVIDERS: ATTEND Surgery
DX: N60.12 Diffuse cystic mastopathy of left breast (principal); Z98.890 Other specified postprocedural states

== ENCOUNTER 2023-07-10 06:14 | Day surgery (SDC) | payer OTHER ==
[2023-07-03 17:27] VITALS: BMI 31.7
[2023-07-10] MEDS ORDERED: DEXAMETHASONE SOD PHOSPHATE 4 MG/ML 1 ML VIAL IV ONE (06:42)
[2023-07-10] MEDS ORDERED: ONDANSETRON 4 MG/2 ML VIAL IVP ONE (06:42)
[2023-07-10] MEDS ORDERED: LIDOCAINE 1% (10MG/ML) FOR IV START INTRADERMA PRN (06:42)
[2023-07-10] MEDS ORDERED: LACTATED RINGERS 1,000 ML IV SCH (06:42)
[2023-07-10] MEDS ORDERED: HYDROmorphone 0.5 MG/0.5 ML SYRINGE IVP PRN (07:00)
[2023-07-10] MEDS ORDERED: MIDAZOLAM 2 MG/2 ML VIAL IV PRN (07:00)
[2023-07-10] MEDS ORDERED: SCOPOLAMINE 1 MG/72 HR PATCH TRANSDERM ONE (07:14)
[2023-07-10] MEDS ORDERED: GLYCOPYRROLATE 0.2 MG/ML 2 ML VIAL ONE (07:48)
[2023-07-10] MEDS ORDERED: fentaNYL (PF) 50 MCG/ML 2 ML AMP ONE (07:48)
[2023-07-10] MEDS ORDERED: PROPOFOL 10 MG/ML 20 ML VIAL IV ONE (07:48)
[2023-07-10] MEDS ORDERED: LIDOCAINE 2% INJ 20 MG/ML (2 ML VIAL) ONE (07:48)
[2023-07-10] MEDS ORDERED: NEOSTIGMINE 1 MG/ML 10 ML VIAL ONE (07:48)
[2023-07-10] MEDS ORDERED: SUCCINYLCHOLINE CHLORIDE 200 MG/10 ML VIAL IV ONE (07:48)
[2023-07-10] MEDS ORDERED: MIDAZOLAM 2 MG/2 ML VIAL ONE (07:48)
[2023-07-10] MEDS ORDERED: ROCURONIUM 10 MG/ML (5 ML VIAL) IV ONE (07:48)
[2023-07-10] MEDS ORDERED: LACTATED RINGERS 1,000 ML IV ONE (08:53)
[2023-07-10 09:11] VITALS: TEMP 98.2
[2023-07-10] MEDS ORDERED: HYDROcodone/APAP 5-325MG 1 EACH TAB ONE (10:11)
[2023-07-10] MEDS ORDERED: HYDROcodone/APAP 5-325MG 1 EACH TAB PO ONE (10:12)
[2023-07-10 10:28] VITALS: RESP 18
[2023-07-10 10:47] VITALS: BP 129/85; PULSE 50
--- NOTE | 2023-07-11 15:30 | OP ---
OPERATIVE REPORT DATE OF SERVICE : 07/10/2023 PREOPERATIVE DIAGNOSES: 1. Acquired absence right and left breast. 2. Personal history of breast cancer. 3. Personal history of bilateral mastectomy. 4. Acquired deformity of right and left reconstructed breast. 5. 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 POSTOPERATIVE DIAGNOSES: 1. Acquired loss right and left breast. 2. Personal history of breast cancer. 3. Personal history of bilateral mastectomy. 4. Acquired deformity of right and left reconstructed breast. 5. Acquired loss right and left breast inframammary fold. OPERATIVE PROCEDURES: 1. Replace right breast tissue coil machine supervisor with silicone breast implant for right breast reconstruction. 2. Revision of right reconstructed breast. 3. Replace left breast tissue coil machine supervisor with silicone breast implant for left breast reconstruction. 4. Revision left reconstructed breast. 5. Reconstruction of right and left breast inframammary fold via local advancement flaps, 60 square cm. OPERATIVE INDICATIONS: The patient is a 47-year-old female who has undergone bilateral mastectomy for treatment of breast cancer. She elected to proceed with immediate reconstruction via tissue coil machine supervisor technique and she has completed subsequent outpatient expansion, is returning to surgery today for the 2nd stage of breast reconstruction with replacement of her tissue coil machine supervisor with silicone breast implants, revision of right left reconstructed breast due to contour irregularities asymmetries caused by the mastectomy and expansion process as well as reconstruction of right and left breast inframammary folds that have been effaced due to the mastectomy and expansion processes. The patient is aware of potential risks and complications including those related to breast implants and surgery. The patient has requested to perform these procedures. OPERATIVE PROCEDURE SUMMARY: The patient was seen in the preoperative area, markings made, procedure reviewed. All questions were answered. She was transported to the operating room where she was placed in supine position. Following induction general anesthesia, the patient is prepped and draped in usual fashion. The prior mastectomy scars located transversely were marked for incision on each side remaining on the left side. Incision made dividing skin full-thickness fashion using cauterization to divide subcutaneous tissue. Upon reaching the surgical graft layer placed at the 1st procedure, skin subcutaneous tissue flaps were now elevated off this. Extensive dissection was required to release contour irregularities, and allow for optimal redrape in for shape and form with today's procedure with back pain that was completed with cautery. Hemostasis maintained with cautery. A 2nd incision was now made through the graft layer offset from the first inferiorly entrapped made incision made transversely. The coil machine supervisor was exposed and removed intact. Expansion cavity appeared normal, no granulation tissue, no exudates. Irrigation was performed. A complete capsulotomy incision was made where the capsule, joined the chest wall and multiple cruciate incisions through the capsular structure to release this tightness. The cavity was irrigated. Hemostasis was excellent. The cavity was packed with laparotomy sponges as well. Attention was turned towards the right side. Incision made from the markings placed with 10 blade scalpel dividing skin full-thickness fashion. Cauterizations used to divide subcutaneous tissue until reaching the graft where again skin subcutaneous tissue flaps were elevated off the graft layer, extensive dissection required to release contour irregularities in to optimize today's reconstruction for shape and form, with that dissection completed. Incisions made to the graft layer inferior to the 1st incision and in transverse fashion. Incision made with cautery exposing the coil machine supervisor. The coil machine supervisor was removed intact. The expansion cavity appeared normal with no granulation tissue no exudates. A small amount of serous fluid irrigations performed. A complete capsulotomy incision was made where the capsule joined the chest wall. Additional cruciate incisions made through the capsular structure to release this tightness. The inframammary fold on the right and left side were now reconstructed . Going through the inframammary capsulotomy incision area, dissection was performed elevating skin subcutaneous tissue flap. This was 1st performed on the right and left side using cautery. The flap on each side measured 20 x 1.5 square cm with the flaps elevated irrigations performed hemostasis maintained with cautery. The flaps were now secured chest wall rib periosteal tissue using interrupted 2-0 Vicryl sutures. Several discrete locations creating well-formed inframammary fold on the right and left side with back completed temporary breast implant sizers now opened on the field. Ultimately, a 700 mL sizer appeared optimal for both breasts with the patient in a seated up position. She has returned to supine position. Temporary breast implant sizers removed, cavities were irrigated and hemostasis was optimal. Gloves changed and breast implants now opened on the field. Both implants were the same today from [facility] soft touch breast implant line measuring 700 mL, reference number [id number]. The right-sided serial number was #[id number], and the left-sided serial #[id number]. The right-sided implant was placed 1st. Each implant was open, was irrigated with saline and then placed into a Fink funnel via no-touch technique inserted in the reconstructive cavity to ensure orientation under direct vision with the right side placed, the left side was then placed on the graft layer was then closed over each implant using interrupted 3-0 Vicryl sutures followed by closure of the deep dermis using inverted interrupted 4-0 Monocryl and the skin to the superficial dermal epidermal closure completed with a simple running 5-0 Prolene. Surgical bach were cleansed with saline dried postoperative bandages placed using Kerlix gauze, secured with 3 Medipore tape followed by a size 4 right mammary support with additional gauze padding to the lateral aspects. The patient is awakened from anesthetic and transferred to recovery room in good condition, stable vital signs. ESTIMATED BLOOD LOSS: Today's procedure was 15 mL. COMPLICATIONS: There were no complications. TONY / HILARYN: [id number] /
== END 2023-07-10 11:02 | disposition home or self-care (01) ==
LOC: OR 06:14
PROVIDERS: ATTEND Plastic Surgery
DX: N65.0 Deformity of reconstructed breast (principal); I10 Essential (primary) hypertension; Z85.3 Personal history of malignant neoplasm of breast; Z90.13 Acquired absence of bilateral breasts and nipples; Z79.899 Other long term (current) drug therapy
CPT/HCPCS: 84132; 19380; J2250; J0330; J1100; J2710; J0690; J2405; J3010; J2704; J1170; J2001

== ENCOUNTER → 2023-09-21 | Outpatient (CLI) | payer BC ==
[2023-09-21 11:17] VITALS: BP 120/80; PULSE 92; RESP 17; TEMP 98.6
--- NOTE | 2023-09-21 11:47 | P.PN ---
Subjective Progress Note Date: 09/21/23 right breast DCIS abnormal right breast mammogram Clarisa is a 47 year old white female seen in consultation for Dr. Gerber regarding a mammographic abnormality in the right breast. She had a routine bilateral mammogram performed on . There were some new indistinct 6-8 mm group of calcifications in the middle depth right breast. A diagnostic mammogram was then performed and of the right breast. No lesions of concern were identified in the left breast. The recommendation was for a stereotactic core biopsy of the right breast. She has been getting regular mammograms since 38. She did not feel any lumps masses or nodules of concern in either breast. She is not complaining of any nipple discharge or skin changes. She has not had any recent trauma or infection in the breast. She has never had any surgery or biopsies on her breasts before. 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 Quintana on 02-12-23 MRI of the breast was done on 02-12-23; genetic testing negative bilateral mastectomy and right SNB possible axillary node dissection Clarisa underwent bilateral mastectomy and axillary tissue sampling on 04-03-23; patient had bilateral implant reconstruction. pathology : left breast bening right breast: high grade DCIS Grade 3, >2cm axillary contents: non node seen She did not have any chemotherapy/radiation therapy/or hormone therapy Caffeine: 4 pops/week nicotine: none chocolate: daily BCP: 5 years Family History: mother: dx breast cancer at 49 of breast cancer at 54 sister: dx breast cancer at 49 at 53 genetic testing done not know results father: prostate cancer Hormonal History: menarche: 11 , breast fed, age at first : 24 menopause: periods regular hormones: none Surgical history: Bilateral skin sparing mastectomy with implant reconstruction Medical History: HTN since 30 Social History: nicotine: none alcohol: occasional drugs: none - Constitutional Constitutional: Denies chills, Denies fever - EENT Eyes: denies blurred vision, denies pain Ears: deny: decreased hearing, tinnitus Ears, nose, mouth and throat: Denies headache, Denies sore throat - Breasts Breasts: bilateral: as per HPI - Cardiovascular Cardiovascular: Denies chest pain, Denies shortness of breath - Respiratory Respiratory: Denies cough - Gastrointestinal Comment: GERD Gastrointestinal: Denies abdominal pain, Denies diarrhea, Denies nausea, Denies vomiting - Genitourinary (Female) Genitourinary: Denies dysuria, Denies hematuria - Menstruation Menstruation: Reports period normal - Musculoskeletal Comment: back pain Musculoskeletal: Denies myalgias - Integumentary Integumentary: Denies pruritus, Denies rash - Neurological Neurological: Denies numbness, Denies weakness - Psychiatric Psychiatric: Denies anxiety, Denies depression - Endocrine Endocrine: Denies fatigue, Denies weight change - Hematologic/Lymphatic Comment: none - Allergic/Immunologic Allergic/Immunologic: Reports seasonal allergies Past Medical History Past Medical History: Hypertension Additional Past Medical History / Comment(s): sciatica in lower back,. intermittent History of Any Multi-Drug Resistant Organisms: None Reported Past Surgical History: No Surgical Hx Reported Past Anesthesia/Blood Transfusion Reactions: No Reported Reaction Past Psychological History: No Psychological Hx Reported Smoking Status: Never smoker Past Alcohol Use History: Occasional Past Drug Use History: None Reported Medications and Allergies Home Medications Medication Instructions Recorded Confirmed Type Atenolol/Chlorthalidone 1 each PO DAILY 01/10/23 02/02/23 History [Atenolol/Chlorthalidone 50-25] Cyclobenzaprine [Flexeril] 10 mg PO HS 01/10/23 02/02/23 History Ibuprofen [Motrin] 600 mg PO Q8HR PRN 01/10/23 02/02/23 History Allergies Allergy/AdvReac Type Severity Reaction Status Date / Time No Known Allergies Allergy Verified 02/02/23 07:31 Objective - Vital Signs Vital signs: Vital Signs Temp 98.6 F 09/21/23 11:11 Pulse 92 09/21/23 11:11 Resp 17 09/21/23 11:11 BP 120/80 09/21/23 11:11 Pulse Ox 97 09/21/23 11:11 FiO2 Intake & Output 09/20/23 09/21/23 09/21/23 18:59 06:59 18:59 Weight 95.254 kg - Constitutional General appearance: Present: cooperative - EENT Eyes: Present: EOMI ENT: Present: hearing grossly normal - Neck Neck: Present: normal ROM - Respiratory Respiratory: bilateral: CTA - Cardiovascular Rhythm: regular Heart sounds: normal: S1, S2 - Integumentary Integumentary: Present: normal turgor - Musculoskeletal Musculoskeletal: Present: gait normal - Psychiatric Psychiatric: Present: A&O x's 3, appropriate affect, intact judgment & insight - Additional findings Additional findings: Breast exam: BRA: 42C The patient has had bilateral skin sparing mastectomy with implant reconstruction Right chest wall: Incision from implant reconstruction clean and dry suture is identified in the incision site Right axilla: No adenopathy of concern Left chest wall: Implant reconstruction site clean and dry small suture identified in the incision Left axilla: No adenopathy of concern Assessment and Plan Assessment: Impression: High-grade DCIS right breast/status post bilateral mastectomy with implant reconstruction Positive history of breast cancer and family Genetic testing was done this is negative Plan: Patient status post Bilateral skin sparing mastectomy, right axillary tissue sampling Patient with 2 sutures superficial on the right and left incision lines these were removed today Follow-up in 6 months, patient to follow up sooner any questions or concerns Additional CC's: Divine Gerber
== END ==
LOC: WWCWWP 11:00
PROVIDERS: ATTEND Surgery
DX: D05.11 Intraductal carcinoma in situ of right breast (principal); I10 Essential (primary) hypertension; Z17.0 Estrogen receptor positive status [ER+]; Z80.3 Family history of malignant neoplasm of breast; Z90.13 Acquired absence of bilateral breasts and nipples; Z98.82 Breast implant status; Z79.899 Other long term (current) drug therapy

== ENCOUNTER → 2024-03-21 | Outpatient (CLI) | payer BC ==
--- NOTE | 2024-03-21 14:00 | P.PN ---
Subjective Progress Note Date: 03/21/24 03-21-24 right breast DCIS 2022 abnormal right breast mammogram Clarisa was seen in consultation for Dr. Gerber regarding a mammographic abnormality in the right breast. She had a routine bilateral mammogram performed on . There were some new indistinct 6-8 mm group of calcifications in the middle depth right breast. A diagnostic mammogram was then performed on of the right breast. No lesions of concern were identified in the left breast. The recommendation was for a stereotactic core biopsy of the right breast. She had been getting regular mammograms since 38. She did not feel any lumps masses or nodules of concern in either breast. She was not complaining of any nipple discharge or skin changes. She had not had any recent trauma or infection in the breast. She had never had any surgery or biopsies on her breasts before. Core biopsy was done on 02-02-23 which was high grade DCIS, this was ER+, [place]+ Note reviewed from Dr. Quintana on 02-12-23 MRI of the breast was done on 02-12-23; genetic testing negative Clarisa underwent bilateral mastectomy and axillary tissue sampling on 04-03-23; patient had bilateral implant reconstruction. pathology : left breast bening right breast: high grade DCIS Grade 3, >2cm axillary contents: no node seen She did not have any chemotherapy/radiation therapy/or hormone therapy Suture which has coming out of the incision on the left side. She is not complaining of any new lumps masses or nodules of concern otherwise on either chest wall. Caffeine: 4 pops/week nicotine: none chocolate: daily BCP: 5 years Family History: mother: dx breast cancer at 49 of breast cancer at 54 sister: dx breast cancer at 49 at 53 genetic testing done not know results father: prostate cancer Hormonal History: menarche: 11 , breast fed, age at first : 24 menopause: periods regular hormones: none Surgical history: Bilateral skin sparing mastectomy with implant reconstruction Medical History: HTN since 30 Social History: nicotine: none alcohol: occasional drugs: none - Constitutional Constitutional: Denies chills, Denies fever - EENT Eyes: denies blurred vision, denies pain Ears: deny: decreased hearing, tinnitus Ears, nose, mouth and throat: Denies headache, Denies sore throat - Breasts Breasts: bilateral: as per HPI - Cardiovascular Cardiovascular: Denies chest pain, Denies shortness of breath - Respiratory Respiratory: Denies cough - Gastrointestinal Comment: GERD Gastrointestinal: Denies abdominal pain, Denies diarrhea, Denies nausea, Denies vomiting - Genitourinary (Female) Genitourinary: Denies dysuria, Denies hematuria - Menstruation Menstruation: Reports period normal - Musculoskeletal Comment: back pain Musculoskeletal: Denies myalgias - Integumentary Integumentary: Denies pruritus, Denies rash - Neurological Neurological: Denies numbness, Denies weakness - Psychiatric Psychiatric: Denies anxiety, Denies depression - Endocrine Endocrine: Denies fatigue, Denies weight change - Hematologic/Lymphatic Comment: none - Allergic/Immunologic Allergic/Immunologic: Reports seasonal allergies Past Medical History Past Medical History: Hypertension Additional Past Medical History / Comment(s): sciatica in lower back,. intermittent History of Any Multi-Drug Resistant Organisms: None Reported Past Surgical History: No Surgical Hx Reported Past Anesthesia/Blood Transfusion Reactions: No Reported Reaction Past Psychological History: No Psychological Hx Reported Smoking Status: Never smoker Past Alcohol Use History: Occasional Past Drug Use History: None Reported Medications and Allergies Home Medications Medication Instructions Recorded Confirmed Type Atenolol/Chlorthalidone 1 each PO DAILY 01/10/23 02/02/23 History [Atenolol/Chlorthalidone 50-25] Cyclobenzaprine [Flexeril] 10 mg PO HS 01/10/23 02/02/23 History Ibuprofen [Motrin] 600 mg PO Q8HR PRN 01/10/23 02/02/23 History Allergies Allergy/AdvReac Type Severity Reaction Status Date / Time No Known Allergies Allergy Verified 02/02/23 07:31 Objective - Vital Signs Vital signs: Intake & Output 03/20/24 03/21/24 03/21/24 18:59 06:59 18:59 Weight 88.451 kg - Constitutional General appearance: Present: cooperative - EENT Eyes: Present: EOMI ENT: Present: hearing grossly normal - Neck Neck: Present: normal ROM - Respiratory Respiratory: bilateral: CTA - Cardiovascular Rhythm: regular Heart sounds: normal: S1, S2 - Integumentary Integumentary: Present: normal turgor - Musculoskeletal Musculoskeletal: Present: gait normal - Psychiatric Psychiatric: Present: A&O x's 3, appropriate affect, intact judgment & insight - Additional findings Additional findings: Breast exam: BRA: 42C The patient has had bilateral skin sparing mastectomy with implant reconstruction Right chest wall: Incision from implant reconstruction clean and well healed Right axilla: No adenopathy of concern Left chest wall: Implant reconstruction site clean well healed; there is a suture which is protruding in the lateral aspect of the incision Left axilla: No adenopathy of concern Assessment and Plan Assessment: Impression: High-grade DCIS right breast/status post bilateral mastectomy with implant reconstruction Positive history of breast cancer in family Genetic testing was done this is negative Following informed consent the suture which was protruding in the lateral aspect of the incision was grasped using a forcip. And this was brought out. With no difficulty. Plan: Patient status post Bilateral skin sparing mastectomy, right axillary tissue sampling Removal of suture left breast incision site done Follow-up in 6 months, patient to follow up sooner any questions or concerns Additional CC's: Divine Gerber
[2024-03-21 14:24] VITALS: BP 119/77; PULSE 85; RESP 17; TEMP 98.3
== END ==
LOC: WWCWWP 13:29
PROVIDERS: ATTEND Surgery
DX: R92.8 Other abnormal and inconclusive findings on diagnostic imaging of breast (principal); R92.1 Mammographic calcification found on diagnostic imaging of breast; D05.11 Intraductal carcinoma in situ of right breast; Z80.3 Family history of malignant neoplasm of breast; Z90.13 Acquired absence of bilateral breasts and nipples

== ENCOUNTER → 2024-11-14 | Outpatient (CLI) | payer BC ==
[2024-11-14 13:31] VITALS: BP 109/73; PULSE 75; RESP 16; TEMP 98.6
--- NOTE | 2024-11-14 13:40 | P.PN ---
Subjective Progress Note Date: 11/14/24 Principal diagnosis: right breast DCIS 202211-14-24 right breast DCIS 2022 abnormal right breast mammogram Clarisa was seen in consultation for Dr. Gerber regarding a mammographic abnormality in the right breast. She had a routine bilateral mammogram performed on . There were some new indistinct 6-8 mm group of calcifications in the middle depth right breast. A diagnostic mammogram was then performed on of the right breast. No lesions of concern were identified in the left breast. The recommendation was for a stereotactic core biopsy of the right breast. She had been getting regular mammograms since 38. She did not feel any lumps masses or nodules of concern in either breast. She was not complaining of any nipple discharge or skin changes. She had not had any recent trauma or infection in the breast. She had never had any surgery or biopsies on her breasts before. Core biopsy was done on 02-02-23 which was high grade DCIS, this was ER+, [place]+ Note reviewed from Dr. Quintana on 02-12-23 MRI of the breast was done on 02-12-23; genetic testing negative Clarisa underwent bilateral mastectomy and axillary tissue sampling on 04-03-23; patient had bilateral implant reconstruction. 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, >2cm axillary contents: no node seen She did not have any chemotherapy/radiation therapy/or hormone therapy She is not complaining of any lumps masses or nodules of concern in either chest wall She is happy with her reconstruction Caffeine: 4 pops/week nicotine: none chocolate: daily BCP: 5 years Family History: mother: dx breast cancer at 49 of breast cancer at 54 sister: dx breast cancer at 49 at 53 genetic testing done not know results father: prostate cancer Hormonal History: menarche: 11 , breast fed, age at first : 24 menopause: periods regular hormones: none Surgical history: Bilateral skin sparing mastectomy with implant reconstruction Medical History: HTN since 30 Social History: nicotine: none alcohol: occasional drugs: none - Constitutional Constitutional: Denies chills, Denies fever - EENT Eyes: denies blurred vision, denies pain Ears: deny: decreased hearing, tinnitus Ears, nose, mouth and throat: Denies headache, Denies sore throat - Breasts Breasts: bilateral: as per HPI - Cardiovascular Cardiovascular: Denies chest pain, Denies shortness of breath - Respiratory Respiratory: Denies cough - Gastrointestinal Comment: GERD Gastrointestinal: Denies abdominal pain, Denies diarrhea, Denies nausea, Denies vomiting - Genitourinary (Female) Genitourinary: Denies dysuria, Denies hematuria - Menstruation Menstruation: Reports period normal - Musculoskeletal Comment: back pain Musculoskeletal: Denies myalgias - Integumentary Integumentary: Denies pruritus, Denies rash - Neurological Neurological: Denies numbness, Denies weakness - Psychiatric Psychiatric: Denies anxiety, Denies depression - Endocrine Endocrine: Denies fatigue, Denies weight change - Hematologic/Lymphatic Comment: none - Allergic/Immunologic Allergic/Immunologic: Reports seasonal allergies Past Medical History Past Medical History: Hypertension Additional Past Medical History / Comment(s): sciatica in lower back,. intermittent History of Any Multi-Drug Resistant Organisms: None Reported Past Surgical History: No Surgical Hx Reported Past Anesthesia/Blood Transfusion Reactions: No Reported Reaction Past Psychological History: No Psychological Hx Reported Smoking Status: Never smoker Past Alcohol Use History: Occasional Past Drug Use History: None Reported Medications and Allergies Home Medications Medication Instructions Recorded Confirmed Type Atenolol/Chlorthalidone 1 each PO DAILY 01/10/23 02/02/23 History [Atenolol/Chlorthalidone 50-25] Cyclobenzaprine [Flexeril] 10 mg PO HS 01/10/23 02/02/23 History Ibuprofen [Motrin] 600 mg PO Q8HR PRN 01/10/23 02/02/23 History Allergies Allergy/AdvReac Type Severity Reaction Status Date / Time No Known Allergies Allergy Verified 02/02/23 07:31 Objective - Constitutional General appearance: Present: cooperative - EENT Eyes: Present: EOMI ENT: Present: hearing grossly normal - Neck Neck: Present: normal ROM - Respiratory Respiratory: bilateral: CTA - Cardiovascular Rhythm: regular Heart sounds: normal: S1, S2 - Integumentary Integumentary: Present: normal turgor - Musculoskeletal Musculoskeletal: Present: gait normal - Psychiatric Psychiatric: Present: A&O x's 3, appropriate affect, intact judgment & insight - Additional findings Additional findings: Breast exam: BRA: 42C The patient has had bilateral skin sparing mastectomy with implant reconstruction Right chest wall: Incision from implant reconstruction clean and well healed Right axilla: No adenopathy of concern Left chest wall: Implant reconstruction site clean well healed; Left axilla: No adenopathy of concern Assessment and Plan Assessment: Impression: High-grade DCIS right breast/status post bilateral mastectomy with implant reconstruction Positive history of breast cancer in family Genetic testing was done this is negative Plan: Patient status post Bilateral skin sparing mastectomy, right axillary tissue sampling Follow-up in 6 months, patient to follow up sooner any questions or concerns Additional CC's: Divine Gerber
== END ==
LOC: WWCWWP 12:41
PROVIDERS: ATTEND Surgery
DX: D05.11 Intraductal carcinoma in situ of right breast (principal); Z17.0 Estrogen receptor positive status [ER+]; Z17.21 Progesterone receptor positive status; Z80.3 Family history of malignant neoplasm of breast; Z90.13 Acquired absence of bilateral breasts and nipples

== ENCOUNTER → 2025-05-22 | Outpatient (CLI) | payer BC ==
[2025-05-22 14:33] VITALS: BP 117/72; PULSE 79; RESP 17; TEMP 98.2
--- NOTE | 2025-05-22 14:46 | P.PN ---
Subjective Progress Note Date: 05/22/25 Principal diagnosis: right breast DCIS 05-22-25 Principal diagnosis: right breast DCIS 202211-14-24 right breast DCIS 2022 abnormal right breast mammogram Clarisa was seen in consultation for Dr. Gerber regarding a mammographic abnormality in the right breast. She had a routine bilateral mammogram performed on . There were some new indistinct 6-8 mm group of calcifications in the middle depth right breast. A diagnostic mammogram was then performed on of the right breast. No lesions of concern were identified in the left breast. The recommendation was for a stereotactic core biopsy of the right breast. She had been getting regular mammograms since 38. She did not feel any lumps masses or nodules of concern in either breast. She was not complaining of any nipple discharge or skin changes. She had not had any recent trauma or infection in the breast. She had never had any surgery or biopsies on her breasts before. Core biopsy was done on 02-02-23 which was high grade DCIS, this was ER+, OH+ Note reviewed from Dr. Quintana on 02-12-23 MRI of the breast was done on 02-12-23; genetic testing negative Clarisa underwent bilateral mastectomy and axillary tissue sampling on 04-03-23; patient had bilateral implant reconstruction. 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, >2cm axillary contents: no node seen She did not have any chemotherapy/radiation therapy/or hormone therapy She is not complaining of any lumps masses or nodules of concern in either chest wall Caffeine: 4 pops/week nicotine: none chocolate: daily BCP: 5 years Family History: mother: dx breast cancer at 49 of breast cancer at 54 sister: dx breast cancer at 49 at 53 genetic testing done not know results father: prostate cancer Hormonal History: menarche: 11 , breast fed, age at first : 24 menopause: periods regular hormones: none Surgical history: Bilateral skin sparing mastectomy with implant reconstruction Medical History: HTN since Social History: nicotine: none alcohol: occasional drugs: none - Constitutional Constitutional: Denies chills, Denies fever - EENT Eyes: denies blurred vision, denies pain Ears: deny: decreased hearing, tinnitus Ears, nose, mouth and throat: Denies headache, Denies sore throat - Breasts Breasts: bilateral: as per HPI - Cardiovascular Cardiovascular: Denies chest pain, Denies shortness of breath - Respiratory Respiratory: Denies cough - Gastrointestinal Comment: GERD Gastrointestinal: Denies abdominal pain, Denies diarrhea, Denies nausea, Denies vomiting - Genitourinary (Female) Genitourinary: Denies dysuria, Denies hematuria - Menstruation Menstruation: Reports period normal - Musculoskeletal Comment: back pain Musculoskeletal: Denies myalgias - Integumentary Integumentary: Denies pruritus, Denies rash - Neurological Neurological: Denies numbness, Denies weakness - Psychiatric Psychiatric: Denies anxiety, Denies depression - Endocrine Endocrine: Denies fatigue, Denies weight change - Hematologic/Lymphatic Comment: none - Allergic/Immunologic Allergic/Immunologic: Reports seasonal allergies Past Medical History Past Medical History: Hypertension Additional Past Medical History / Comment(s): sciatica in lower back,. intermittent History of Any Multi-Drug Resistant Organisms: None Reported Past Surgical History: No Surgical Hx Reported Past Anesthesia/Blood Transfusion Reactions: No Reported Reaction Past Psychological History: No Psychological Hx Reported Smoking Status: Never smoker Past Alcohol Use History: Occasional Past Drug Use History: None Reported Medications and Allergies Home Medications Medication Instructions Recorded Confirmed Type Atenolol/Chlorthalidone 1 each PO DAILY 01/10/23 02/02/23 History [Atenolol/Chlorthalidone 50-25] Cyclobenzaprine [Flexeril] 10 mg PO HS 01/10/23 02/02/23 History Ibuprofen [Motrin] 600 mg PO Q8HR PRN 01/10/23 02/02/23 History Allergies Allergy/AdvReac Type Severity Reaction Status Date / Time No Known Allergies Allergy Verified 02/02/23 07:31 Objective - Vital Signs Vital signs: Vital Signs Temp 98.2 F 05/22/25 14:30 Pulse 79 05/22/25 14:30 Resp 17 05/22/25 14:30 BP 117/72 05/22/25 14:30 Pulse Ox 99 05/22/25 14:30 FiO2 Intake & Output 05/21/25 05/22/25 05/22/25 18:59 06:59 18:59 Weight 86.183 kg - Constitutional General appearance: Present: cooperative - EENT Eyes: Present: EOMI ENT: Present: hearing grossly normal - Neck Neck: Present: normal ROM - Respiratory Respiratory: bilateral: CTA - Cardiovascular Rhythm: regular Heart sounds: normal: S1, S2 - Integumentary Integumentary: Present: normal turgor - Musculoskeletal Musculoskeletal: Present: gait normal - Psychiatric Psychiatric: Present: A&O x's 3, appropriate affect, intact judgment & insight - Additional findings Additional findings: Breast exam: BRA: 42C The patient has had bilateral skin sparing mastectomy with implant reconstruction Right chest wall: Incision from implant reconstruction clean and well healed Right axilla: No adenopathy of concern Left chest wall: Implant reconstruction site clean well healed; Left axilla: No adenopathy of concern Assessment and Plan Assessment: Impression: High-grade DCIS right breast/status post bilateral mastectomy with implant reconstruction Positive history of breast cancer in family Genetic testing was done this is negative Plan: Patient status post Bilateral skin sparing mastectomy, right axillary tissue sampling Follow-up in 6 months, patient to follow up sooner any questions or concerns Additional CC's: Divine Gerber
== END ==
LOC: WWCWWP 13:37
PROVIDERS: ATTEND Surgery
DX: D05.11 Intraductal carcinoma in situ of right breast (principal); Z90.13 Acquired absence of bilateral breasts and nipples; Z80.3 Family history of malignant neoplasm of breast